=== PATIENT | male | born 1925 | race Caucasian/White ===

== ENCOUNTER → 2016-07-22 | Outpatient (CLI) | payer MEDICARE, OTHER ==
[2016-07-22 09:25] LABS: MEAN CORPUSCULAR HEMOGLOBIN 29.2 PG (26.0-34.0); MEAN CORPUSCULAR HGB CONC 33.3 g/dL (31.0-37.0); MEAN CORPUSCULAR VOLUME 88 FL (80-100); MEAN PLATELET VOLUME 9.5 FL (6.0-9.5); PLATELET COUNT 245 10^3uL (150-450); WHITE BLOOD COUNT 6.22 10^3uL (4.0-11.0)
[2016-07-22 09:58] LABS: BAND NEUTROPHILS % 0 % (0-6); EOSINOPHILS % 0 % (0-4); LYMPHOCYTES # 2.2 #; MONOCYTES # 0.7 #; MONOCYTES % 12 % (3-11); RBC MORPH NORMAL (NORMAL); SEGMENTED NEUTROPHILS % 51 % (51-67); TOTAL CELLS COUNTED 100
[2016-07-22 10:57] LABS: ALBUMIN 4.3 g/dL (3.4-5.0); ANION GAP 16.1 MEQ/L (3-15); TOTAL PROTEIN 7.8 g/dL (6.4-8.5)
== END ==
LOC: LAB 09:11
PROVIDERS: ATTEND Family Medicine
DX: Z51.81 Encounter for therapeutic drug level monitoring (principal); Z79.01 Long term (current) use of anticoagulants; Z95.2 Presence of prosthetic heart valve; R41.89 Other symptoms and signs involving cognitive functions and awareness; I10 Essential (primary) hypertension; E78.1 Pure hyperglyceridemia; I25.10 Atherosclerotic heart disease of native coronary artery without angina pectoris
CPT/HCPCS: 36415; 80053; 80061; 84443; 85025; 85610